=== PATIENT | male | born 1965 | race Caucasian/White ===

== ENCOUNTER → 2023-03-26 08:45 | Outpatient (CLI) | payer OTHER, SELFPAY ==
--- NOTE | 2023-03-26 08:51 | DI.MRI.S_ITS ---
PROCEDURE: MR LUMBAR SPINE WO CON INDICATIONS: LBP,RIGHT LEG PAIN/WEAKNESS/NUMBNESS TECHNIQUE: Noncontrast sagittal T1 spin echo and T2 fast echo, sagittal STIR, and T2 fast spin echo through the lumbar spine. In cases with scoliosis, additional coronal T2 fast spin echo may be performed. COMPARISON: None. FINDINGS: Image quality: Excellent. Alignment and Curvature: There is normal bony alignment. Bone Marrow: Chronic degenerative endplate changes noted at L5-S1 Spinal Cord: Conus medullaris terminates at the L1 level. Visualized cord demonstrates normal signal and size. Paraspinous Soft Tissues: No paravertebral masses. T12-L1: Normal appearance. L1-L2: Normal appearance. L2-L3: Disc space narrowing with small circumferential disc bulge present. High-intensity zone in the posterior annulus reflects annular fissure or tear. Mild central stenosis. Mild bilateral foraminal stenosis. L3-L4: Disc height is maintained. Circumferential disc bulge is asymmetric to the left. No central stenosis. Mild effacement of the left lateral recess. Mild left foraminal stenosis. L4-L5: Disc space narrowing with asymmetric right disc bulge effaces the right lateral recess. High-intensity zone noted in the posterior annulus reflecting annular fissure or tear. moderate central stenosis Facet arthropathy associated moderate bilateral foraminal stenosis. L5-S1: Disc space narrowing with disc bulge and hypertrophic facet joints present. No central stenosis. Moderate left and mild right foraminal stenosis IMPRESSION: Multilevel degenerative disc disease and arthropathy results in varying degrees of central and foraminal stenosis including effacement the right lateral recess and moderate central stenosis L4-5 Approved by: Calvin Lane M.D. on 03/26/2023 at 11:59
== END ==
LOC: MRI 08:50
PROVIDERS: Referring Provider Chiropractor; Visit Provider Chiropractor
DX: M51.16 Intervertebral disc disorders with radiculopathy, lumbar region (principal); M51.17 Intervertebral disc disorders with radiculopathy, lumbosacral region; M99.13 Subluxation complex (vertebral) of lumbar region; M47.26 Other spondylosis with radiculopathy, lumbar region; M47.27 Other spondylosis with radiculopathy, lumbosacral region; M48.061 Spinal stenosis, lumbar region without neurogenic claudication; M48.07 Spinal stenosis, lumbosacral region; M54.51 Vertebrogenic low back pain
CPT/HCPCS: 72148

== ENCOUNTER → 2023-09-17 08:15 | Outpatient (CLI) | payer OTHER, SELFPAY ==
--- NOTE | 2023-09-17 08:17 | DI.MRI.S_ITS ---
PROCEDURE: MR LOWER LEG RT WO CON INDICATIONS: Unspecified mononeuropathy of right lower limb TECHNIQUE: Noncontrast coronal T1 spin echo and STIR; sagittal T1 spin echo with fat saturation and STIR; axial T1 spin echo and T2 fast spin echo with fat saturation through the right lower leg. COMPARISON: [facility], MR, MR ANKLE RT WO CON, 09/17/2023, 8:58. FINDINGS: Image quality: Excellent. Bones: The visualized bone marrow demonstrates normal signal on all sequences. The overlying cortex appears intact. No fractures lines or intra-osseous lesions. Soft tissues: Mildly increased T2-weighted signal on the superficial lateral margin of the extensor digitorum longus muscle at the mid ross level. No significant fatty infiltration or loss of muscle bulk. No soft tissue mass is seen. There is thickening of the Achilles tendon consistent with chronic tendinosis. Small amount of fluid is seen tracking along the distal pes anserine tendons. IMPRESSION: 1. Mild nonspecific [id number] signal along the anterior medial aspect of the extensor digitorum longus tendon at the mid ross level, possibly related to low-grade muscle strain versus contusion or nonspecific hyperemia, versus less likely early denervation changes. The remaining lower leg musculature is normal in signal intensity and bulk. 2. Moderate Achilles tendinosis. 3. Small pes anserine bursal effusion or mild bursitis. Approved by: Jt Ortez M.D. on 09/17/2023 at 20:05
--- NOTE | 2023-09-17 08:17 | DI.MRI.S_ITS ---
PROCEDURE: MR ANKLE RT WO CON INDICATIONS: Unspecified mononeuropathy of right lower limb TECHNIQUE: Noncontrast sagittal T1 spin echo and T2 fast spin echo with fat saturation, axial proton density fast spin echo and T2 fast spin echo with fat saturation, coronal T1 spin echo and T2 fast spin echo with fat saturation through the ankle/hindfoot. COMPARISON: None. FINDINGS: Image quality: Excellent. Bones and joints: Mild edema is seen at the the proximal medial aspect of the cuboid that may be degenerative. No acute trabecular bone injury or fracture. No hindfoot coalitions. Small chronic osteochondral lesion of the lateral talar dome measuring 9 x 3 x 3 mm with mild subchondral cystic changes and subchondral edema. Medial structures: The deltoid ligament and the spring ligament complex are intact. The posterior tibialis, flexor digitorum longus, and flexor hallucis longus tendons are intact. The posterior tibial neurovascular bundle appears normal within the tarsal tunnel, without extrinsic mass effect. Lateral structures: The anterior talofibular, calcaneofibular, and posterior talofibular ligaments are intact. The anterior and posterior tibiofibular ligaments are intact. The peroneus longus and brevis tendons demonstrate normal location and morphology. The sinus tarsi demonstrates normal fatty signal. Anterior structures: The tibialis anterior, extensor hallucis longus, and extensor digitorum longus tendons appear intact. Posterior and plantar structures: Moderate thickening of the Achilles tendon is consistent with tendinosis. There is mild thickening of the proximal plantar fascia without surrounding some edema. No abductor digiti minimi muscle atrophy to suggest [place] neuropathy. The remaining visualized musculature is normal in bulk. IMPRESSION: 1. Mild osseous edema and cystic changes in the proximal medial aspect of the cuboid are suspicious for mild degenerative changes or prior trauma. 2. Chronic osteochondral lesion at the medial talar dome measuring 9 x 3 x 3 mm with subchondral cystic changes and mild subchondral edema. There is irregularity of the overlying articular cartilage without disruption of the subchondral plate or loose osteochondral lesion. 3. Moderate Achilles tendinosis. 4. Mild chronic proximal plantar fasciitis. Approved by: Jt Ortez M.D. on 09/17/2023 at 18:54
== END ==
LOC: MRI 08:16
PROVIDERS: Referring Provider Student in an Organized Health Care Education/Training Program; Visit Provider Student in an Organized Health Care Education/Training Program
DX: G57.91 Unspecified mononeuropathy of right lower limb (principal); M72.2 Plantar fascial fibromatosis; M89.9 Disorder of bone, unspecified
CPT/HCPCS: 73718; 73721